=== PATIENT | female | born 1980 | race Caucasian/White ===

== ENCOUNTER 2018-06-07 11:53 | Emergency (ER) | payer MEDICAID ==
[2018-06-07] MEDS: LIDOCAINE 1% (MPF) 5 ML VIAL INJ (13:48)
[2018-06-07] MEDS: CEFTRIAXONE 1 GM INJ IM (13:48)
[2018-06-07] MEDS: IBUPROFEN 200 MG TAB PO (13:48)
[2018-06-07 14:08] LABS: ADD UMIC YES; UR ASCORBIC ACID NEGATIVE (NEGATIVE); UR BILIRUBIN (Dip) NEGATIVE (NEGATIVE); UR BLOOD (Dip) NEGATIVE (NEGATIVE); UR CLARITY CLEAR (CLEAR); UR COLOR STRAW (YELLOW); UR GLUCOSE (Dip) NEGATIVE (NEGATIVE); UR KETONES (Dip) NEGATIVE (NEGATIVE); UR LEUKOCYTE ESTERASE (Dip) TRACE Leu/ul (NEGATIVE); UR NITRITE (Dip) NEGATIVE (NEGATIVE); UR RBC 1 /HPF (0-5); UR SPECIFIC GRAVITY (Dip) 1.005 (1.003-1.030); UR TOTAL PROTEIN (Dip) NEGATIVE (NEGATIVE); UR UROBILINOGEN (Dip) NEGATIVE (NEGATIVE); UR WBC 9 /HPF (0-5)
== END 2018-06-07 14:46 | disposition home or self-care (01) ==
LOC: FTE 11:53
DX: N12 Tubulo-interstitial nephritis, not specified as acute or chronic (principal)
CPT/HCPCS: 81001; 81025; 87086; 87210; 96372; 99284-25

== ENCOUNTER 2018-08-03 16:05 | Emergency (ER) | payer MEDICAID ==
[2018-08-03 19:04] LABS: URINE BLOOD (Dip) POC 2+ (NEGATIVE); URINE GLUCOSE (Dip) POC Negative (NEGATIVE); URINE KETONES (Dip) POC Negative (NEGATIVE); URINE LEUKOCYTE EST (Dip) POC 2+ (NEGATIVE); URINE NITRITE (Dip) POC Negative (NEGATIVE); URINE TOTAL PROTEIN POC Trace (NEGATIVE)
== END 2018-08-03 19:25 | disposition home or self-care (01) ==
LOC: FTE 19:25
DX: N39.0 Urinary tract infection, site not specified (principal)
CPT/HCPCS: 81003; 99283